=== PATIENT | male | born 1945 | race Caucasian/White ===

== ENCOUNTER 2025-06-24 12:26 | Emergency (ER) | payer MEDICARE | END 2025-06-24 14:30 | disposition home or self-care (01) | LOC: CSHERS 12:26 | DX: S09.90XA Unspecified injury of head, initial encounter (principal); S60.222A Contusion of left hand, initial encounter; I48.91 Unspecified atrial fibrillation; W18.2XXA Fall in (into) shower or empty bathtub, initial encounter | CPT/HCPCS: 70450; 72125 ==